=== PATIENT | female | born 1990 | race Caucasian/White ===

== ENCOUNTER 2018-10-16 08:25 | Inpatient (IN) ==
[~2018-10-16 08:25] MED LIST: miSOPROStol 50 MCG TAB PO ONE
[2018-10-16] MEDS ORDERED: LACTATED RINGER'S 1,000 ML IV PRN (10:10)
[2018-10-16] MEDS ORDERED: OXYTOCIN 30 UNITS/500 ML BAG IV PRN (10:10)
[2018-10-16] MEDS ORDERED: LACTATED RINGER'S 1,000 ML IV SCH (10:15)
[2018-10-16 10:33] LABS: Hematocrit (blood only) 38.1 % (37-47); Mean Corpuscular Volume 91.6 fL (80-100); Mean Platelet Volume 10.1 fL (7.4-10.4); Platelet Count 242 K/uL (130-400); Red Blood Count 4.16 M/uL (4.2-5.4); White Blood Count 8.35 K/uL (4.8-10.8)
[2018-10-16 10:37] LABS: Mean Corpuscular Hgb Conc 34.1 g/dL (32-36)
--- NOTE | 2018-10-16 11:32 | Obstetrical Progress Note ---
Date of Service October 16, 2018 Subjective 28 F P0010 at 41.1 weeks here for post dates induction of labor. GBS is negative. FHT Cat 1. Cervix is finger tip/50/-3/posterior/firm/intact. Will place Cervidil for ripening. Physical Exam 2 Vital Signs (Past 24 Hours): Last Vital Signs Temp 36.7 C 10/16/18 11:03 Pulse 76 10/16/18 11:03 Resp 20 10/16/18 11:03 BP 116/75 10/16/18 11:03
[2018-10-16] MEDS ORDERED: DINOPROSTONE 10 MG INSERT PV ONE (11:45)
[2018-10-17] MEDS ORDERED: miSOPROStol 50 MCG TAB PO ONE (01:00)
[2018-10-17] MEDS ORDERED: BUTORPHANOL TARTRATE 1 MG/ML VIAL IV PRN (01:19)
[2018-10-17] MEDS ORDERED: Nursing to Pharmacy Communication ONE (01:21)
[2018-10-17] MEDS ORDERED: miSOPROStol 50 MCG TAB PO PRN (01:26)
[2018-10-17] MEDS ORDERED: ePHEDrine sulfate 50 MG/ML AMP ONE (04:06)
[2018-10-17] MEDS ORDERED: BUPIVACAINE 0.25% 30 ML VIAL ONE (04:06)
[2018-10-17] MEDS ORDERED: fentaNYL citrate 100 MCG/2 ML VIAL ONE (04:07)
[2018-10-17] MEDS ORDERED: fentaNYL 2MCG/ML ROPIV 1.25MG/ML 100 ML BAG EPI ONE (04:07)
[2018-10-17] MEDS ORDERED: METHYLERGONOVINE MALEATE 0.2 MG/ML AMP ONE (04:53)
[2018-10-17] MEDS ORDERED: miSOPROStol 200 MCG TAB ONE (05:07)
[2018-10-17] MEDS ORDERED: ACETAMINOPHEN 325 MG TAB PO PRN (05:09)
[2018-10-17] MEDS ORDERED: BENZOCAINE 20% AER SPR 82.5 GM CAN EXT PRN (05:09)
[2018-10-17] MEDS ORDERED: METHYLERGONOVINE MALEATE 0.2 MG/ML AMP IM ONE (05:09)
[2018-10-17] MEDS ORDERED: SUPERCREAM 0.870% 15 GM JAR EXT PRN (05:09)
[2018-10-17] MEDS ORDERED: BISACODYL 10 MG SUPP PR PRN (05:09)
[2018-10-17] MEDS ORDERED: miSOPROStol 200 MCG TAB PR ONE (05:09)
[2018-10-17] MEDS ORDERED: OXYTOCIN 30 UNITS/500 ML BAG IV PRN (05:09)
[2018-10-17] MEDS ORDERED: HYDROCORTISONE ACETATE 25 MG SUPP PR PRN (05:09)
[2018-10-17] MEDS ORDERED: DIPHTHERIA/TETANUS/PERTUSSIS 0.5 ML SYR/VIAL IM ONE (05:09)
[2018-10-17] MEDS ORDERED: LACTATED RINGER'S 1,000 ML IV SCH (05:15)
--- NOTE | 2018-10-17 05:20 | Procedure Note ---
Vaginal Delivery Summary Date of Service October 17, 2018 Vaginal Delivery Summary Delivery Note live male over intact perineum REBECCA with delayed cord clamping. Apgars 8/9 weight pending. Cord obtained for full cord gas and cord blood obtained. Spontaneous delivery of intact placenta with 3VC. Small amount of uterine atony noted post- after delivery of placenta Fundus massaged, Cytotec 67625 mcg given rectally and 0.2 mg IM Methergine given. Small perineal tear noted and not bleeding with no repair needed. EBL 300ml. Final sponge and instrument count are correct. Mom and baby stable.
[2018-10-17 05:22] LABS: Base Excess Cord Arterial Bld -5.8 mEq/L (-9-1.8); CO2 Cord Arterial Blood 73 mmHg (39.1-73.5); HCO3 Cord Arterial Blood 25 mmol/L (19.7-28.5); pH Cord Arterial Blood 7.16 (7.1-7.38)
[2018-10-17 05:30] LABS: Base Excess Cord Venous Blood -5.2 mEq/L (-7.7-1.9); Cord Venous Blood HCO3 22 mmol/L (18.4-26.8); Cord Venous Blood PCO2 48 mmHg (30.4-57.2); Cord Venous Blood PO2 31 mmHg (14.1-43.3); Cord Venous Blood pH 7.28 (7.20-7.44)
[2018-10-17] MEDS: FERROUS SULFATE 325 MG TAB PO SCH (09:46)
[2018-10-17] MEDS: DOCUSATE SODIUM 100 MG CAP PO SCH ×2 (09:46→21:22)
[2018-10-17] MEDS: PRENATAL VITAMIN 1 TAB PO SCH (09:46)
--- NOTE | 2018-10-17 11:20 | Obstetrical Progress Note ---
Date of Service October 17, 2018 Assessment & Plan (1) normal course: PPD #1 pt doing well continue day #1 care Subjective Ambulation: ambulating normally Voiding: no voiding problems Passing Gas:: Yes Diet Tolerance:: regular diet Lochia:: Small Feeding Type:: breast feeding Review of Systems All systems reviewed & are unremarkable except as noted in HPI & below Physical Exam Vital Signs (Past 24 Hours) Last Vital Signs Temp 36.7 C 10/17/18 08:00 Pulse 91 H 10/17/18 08:00 Resp 16 10/17/18 08:00 BP 135/87 10/17/18 08:00 Pulse Ox 98 10/16/18 22:58 Constitutional WD/WN, vitals as above well developed and well nourished Eyes PERRL, conjunctivae normal, anicteric sclerae Neck trachea midline, no thyromegaly Respiratory normal respiratory effort, lungs clear to auscultation Auscultation: no crackles, no rales and no wheezes Cardiovascular RRR, no murmur, no edema Gastrointestinal (Abdomen) normal bowel sounds, soft, nontender, no hepatosplenomegaly Uterus is below umbilicus Musculoskeletal no cyanosis or clubbing, extremities motor strength 5/5 Skin no rashes, warm and dry Neurologic patellar DTR's 2+ bilat, sensation intact Psychiatric A+Ox3, euthymic affect Genitourinary normal external appearance
[2018-10-17] MEDS: IBUPROFEN 600 MG TAB PO PRN ×2 (14:09→19:46)
[2018-10-18 07:56] LABS: Hematocrit (blood only) 35.2 % (37-47); Hemoglobin 11.9 g/dL (12.0-16.0); Mean Corpuscular Hgb Conc 33.8 g/dL (32-36); Mean Corpuscular Volume 92.9 fL (80-100); Mean Platelet Volume 9.8 fL (7.4-10.4); Platelet Count 232 K/uL (130-400); RDW Coefficient of Variation 13.2 % (11.5-14.5); RDW Standard Deviation 44.8 fL (36.4-46.3); Red Blood Count 3.79 M/uL (4.2-5.4); White Blood Count 12.21 K/uL (4.8-10.8)
[2018-10-18] MEDS: PRENATAL VITAMIN 1 TAB PO SCH (08:21)
[2018-10-18] MEDS: IBUPROFEN 600 MG TAB PO PRN ×2 (08:21→20:00)
[2018-10-18] MEDS: DOCUSATE SODIUM 100 MG CAP PO SCH ×2 (08:21→20:00)
[2018-10-18] MEDS: FERROUS SULFATE 325 MG TAB PO SCH (08:21)
--- NOTE | 2018-10-18 09:50 | Obstetrical Progress Note ---
Date of Service October 18, 2018 Subjective Patient is seen and examined. She feels well, no complaints. Ambulating without dizziness Voiding without difficulty Tolerating regular diet with out N&V Bleeding is minimal No fever/ chills/ CP/ SOB/ N&V/ Leg pain Breast feeding without problems Vital Signs Temp Pulse Resp BP Pulse Ox 10/18/18 04:30 36.3 C L 86 16 119/77 10/18/18 00:00 36.6 C 87 18 119/80 10/17/18 19:55 36.5 C 101 H 18 124/73 10/17/18 16:00 36.6 C 88 18 121/84 97 10/17/18 13:00 36.5 C 88 16 126/84 10/18/18 Range/Units 07:39 WBC 12.21 H (4.8-10.8) K/uL RBC 3.79 L (4.2-5.4) M/uL Hgb 11.9 L (12.0-16.0) g/dL Hct 35.2 L (37-47) % MCV 92.9 (80-100) fL MCH 31.4 (25-34) pg MCHC 33.8 (32-36) g/dL RDW Std Deviation 44.8 (36.4-46.3) fL RDW Coeff of Dwaine 13.2 (11.5-14.5) % Plt Count 232 (130-400) K/uL MPV 9.8 (7.4-10.4) fL PE: General: Alert, orientedx3, NAD Abd: soft, NT, fundus firm, below Umbilicus Perineum intact, Lochia rubra minimal Ext; NT, no edema AP: 28 yo s/p , ppd# 1 VSS Afebrile doing well Continue routine care All questions were answered D/C home tomorrow Physical Exam 2 Vital Signs (Past 24 Hours): Last Vital Signs Temp 36.3 C L 10/18/18 04:30 Pulse 86 10/18/18 04:30 Resp 16 10/18/18 04:30 BP 119/77 10/18/18 04:30 Pulse Ox 97 10/17/18 16:00
[2018-10-18] MEDS ORDERED: BISACODYL 5 MG TABEC PO SCH (20:00)
[2018-10-19 07:02] LABS: Hematocrit (blood only) 39.1 % (37-47); Hemoglobin 13.2 g/dL (12.0-16.0)
[2018-10-19] MEDS: IBUPROFEN 600 MG TAB PO PRN (07:52)
[2018-10-19] MEDS: DOCUSATE SODIUM 100 MG CAP PO SCH (08:46)
[2018-10-19] MEDS: PRENATAL VITAMIN 1 TAB PO SCH (08:46)
[2018-10-19] MEDS: FERROUS SULFATE 325 MG TAB PO SCH (08:46)
--- NOTE | 2018-10-19 09:59 | Obstetrical Progress Note ---
Date of Service October 19, 2018 Physical Exam 2 Vital Signs (Past 24 Hours): Last Vital Signs Temp 36.9 C 10/19/18 04:00 Pulse 82 10/19/18 04:00 Resp 18 10/19/18 04:00 BP 127/76 10/19/18 04:00 Pulse Ox 97 10/18/18 17:05 Physical Exam: ABDOMEN SOFT AND NON TENDER VAGINAL BLEEDING SCANT TO MODERATE AMBULATING WELL NO CALF TENDERNESS
== END 2018-10-19 12:05 | disposition home or self-care (01) | DRG 807 ==
LOC: 4S1 08:25 → 4S2 10-17 09:08

== ENCOUNTER 2021-06-17 12:51 | Observation (INO) ==
[2021-06-17] MEDS ORDERED: OXYTOCIN 30 UNITS/500 ML BAG IV PRN (14:26)
[2021-06-17] MEDS ORDERED: LACTATED RINGER'S 1,000 ML IV PRN (14:26)
--- NOTE | 2021-06-17 15:27 | Ultrasound Report ---
US OB limited CLINICAL HISTORY: 31 years-old Female presenting with IUFD, FHR. Known demise. Study was perfor med for confirmation of absence of the cardiac activity. TECHNIQUE: Real-time grayscale ultrasound imaging of the abdomen was performed for a focused evaluati on at the site of clinical concern. COMPARISON: None. FINDINGS: No heart activity was detected on current study. body parts are demonstrated. IMPRESSION: 1. No cardiac activity was detected on current exam. ACT 112: Negative or not required by law. Electronically signed by: Caterina Dent DO 06/17/2021 3:26 PM
[2021-06-17 15:31] LABS: Amphetamines+Metham, Urine Neg (Neg); Barbiturates, Urine Neg (Neg); Benzodiazepine, Urine Neg (Neg); Cocaine, Urine Neg (Neg); MDMA (Ecstacy), Urine Neg (Neg); Methadone, Urine Neg (Neg); Opiate, Urine Neg (Neg); Phencyclidine, Urine Neg (Neg)
[2021-06-17 15:31] LABS: Alanine Aminotransferase 93 U/L (12-78); Albumin Level 2.6 gm/dl (3.4-5.0); Aspartate Aminotransferase 86 U/L (15-37); BUN Creatinine Ratio 9.2 (10-20); Blood Urea Nitrogen 4 mg/dl (7-18); Calcium 8.6 mg/dl (8.5-10.1); Carbon Dioxide 25 mmol/L (21-32); Chloride 107 mmol/L (98-107); Creatinine Clr Calc Pharmacy 190.2 ml/min; Est GFR (African American) > 150.0 ml/min; Est GFR (Non-African American) 131.6 ml/min; Glucose 80 mg/dl (70-99); Potassium 3.6 mmol/L (3.5-5.1); Sodium 139 mmol/L (136-145)
[2021-06-17 15:38] LABS: Hematocrit (blood only) 40.1 % (37-47); Hemoglobin 13.8 g/dL (12.0-16.0); Mean Corpuscular Hemoglobin 31.8 pg (25-34); Mean Corpuscular Hgb Conc 34.4 g/dL (32-36); Mean Corpuscular Volume 92.4 fL (80-100); Platelet Count 71 K/uL (130-400); Platelet Estimate Decreased (Normal); Red Blood Count 4.34 M/uL (4.2-5.4); White Blood Count 5.35 K/uL (4.8-10.8)
[2021-06-17 15:42] LABS: Albumin Globulin Ratio 0.7 (0.9-2); Alkaline Phosphatase 136 U/L (45-117); Bilirubin,Total 0.3 mg/dl (0.2-1); Globulin 3.7 gm/dl (2.5-4.0); Total Protein 6.3 gm/dl (6.4-8.2)
[2021-06-17] MEDS ORDERED: miSOPROStoL 50 MCG TAB PO SCH (16:00)
--- NOTE | 2021-06-17 16:08 | History & Physical Report ---
Date of Service June 17, 2021 Assessment & Plan (1) IUFD at 20 weeks or more of gestation: Plan: 31-year-old -0-1-1 at 30 weeks and 5 days of gestation with recent history of COVID-19 recovered with mild symptoms, Decreased movements for the last 2 days now confirmed IUFD with ultrasound both in office and here in labor and delivery. Vital signs stable afebrile, No signs nor symptoms of labor, PPROM, abruption, Low platelets with mild elevated liver enzymes, normal blood pressures and no protein in urine,Unlikely to be preeclampsia with severe features, most likely from recent COVID-19 infection. Plan to admit, monitor, repeat labs with coags cervical ripening with prostaglandins, Discussed work-up for IUFD including blood work for systemic illness, maternal diseases and autopsy, cyto-genetics, Patient agrees with blood work and cytogenetic testing but declines autopsy. All questions were answered. Admission and Anticipated Discharge Date Admission Date: June 17, 2021 History of Present Illness Chief Complaint: demise Primary Care Provider: Damian Lima MD Patient is a 31-year-old -0-1-1 at 30 weeks and 5 days of gestation who was sent from office with diagnosis of intrauterine demise, confirmed with ultrasound. She has been been noticing decreased movement since June 15 when she notified her OB to do a telemedicine visit and recommended to call back if no improvement after eat and drink. Patient felt 10 kicks in 2 hours on June 15 and then not much yesterday. She felt 1-Click last night and then called this morning and recommended to come into the office for NST. Nursing team could not find heart rate and refer her for ultrasound which confirmed no heart rate. Since she came here she requested another ultrasound for confirmation and it was down and confirmed no heart tones. She has no complaints other than being sad. She was recently diagnosed with COVID-19 and was home with minimal symptoms. She started to have symptoms of runny nose and loss of smell on June 06. Then went to walk-in clinic in [facility] and had swab done on June 09. They called her with positive results on June 11. She states she passed her symptoms easily that she almost could not believe that her test was positive. She had occasional headaches and cough but she has been doing well since yesterday. Her has been uncomplicated. She had full-term spontaneous vaginal delivery in 2019 with no complications. She denies any medical problems, surgeries, medications, smoking, alcohol or drug use. She denies any history of patient transmit diseases including chlamydia, gonorrhea, herpes. She has been working from home since COVID-19 disease has started. She denies contractions, leakage of fluid, vaginal bleeding. She denies headache, change in her vision, epigastric or right upper quadrant pain, nausea or vomiting. Allergies Allergy/AdvReac Type Severity Reaction Status Date / Time Penicillins Allergy Mild RASH Verified 10/17/18 06:42 amoxicillin Allergy Rash Verified 10/17/18 06:43 Home Medications Medication Instructions Recorded Confirmed Type vitamins-iron fumarate 27 1 tab PO DAILY 10/16/18 06/17/21 History mg iron-folic acid 0.8 mg tablet ( Vitamin) Patient History Medical History (Updated 06/17/21 @ 16:05 by Sloane Dan MD) COVID-19 onset of symptoms June 06 positive test June 10 No known health problems Surgical History [place] teeth removed Social History Smoking Status: Never smoker Hx Alcohol Use: No Hx Substance Use: No Preferred Language: Danish Communication Ability: Effective Travel Pta Required: No Beliefs That Will Affect Care: None marital status: Current Living Situation: Spouse Feels Safe at Home: Yes Safety Concerns: Feels Safe At This Time Assistive Devices: None Review of Systems as per Subjective / HPI Physical Exam Constitutional: well developed and well nourished She is comfortably sitting in bed and smiling, not in acute distress. Gastrointestinal (Abdomen): normal bowel sounds, soft, nontender, no hepatosplenomegaly (Gravid, no epigastric nor right upper quadrant tenderness.) Inspection/Auscultation: abdomen normal to inspection and + abdomen distended Genitourinary: normal external appearance OB Exam Abdomen: + vertex Manual OB Exam: + cervical dilation 1 cm, + cervical effacement 20% and + station high (Posterior) Results & Data ([facility]) Vital Signs (Past 12 Hours) Vital Signs Temp Pulse Resp BP Pulse Ox 06/17/21 15:55 81 98 06/17/21 15:50 82 98 06/17/21 15:45 79 98 06/17/21 15:40 78 99 06/17/21 15:35 83 97 06/17/21 15:30 89 96 06/17/21 15:25 78 98 06/17/21 15:20 84 99 06/17/21 15:12 80 94 06/17/21 15:11 90 95 06/17/21 15:07 83 94 06/17/21 15:06 84 94 06/17/21 15:01 82 96 06/17/21 15:00 82 94 06/17/21 14:56 78 94 06/17/21 14:55 81 94 06/17/21 14:51 81 94 06/17/21 14:50 96 H 94 06/17/21 14:46 79 94 06/17/21 14:44 83 94 06/17/21 14:41 77 95 06/17/21 14:37 82 94 06/17/21 14:36 82 94 06/17/21 14:28 36.4 C L 82 20 117/75 95 06/17/21 13:52 36.4 C L 82 20 117/75 95 Laboratory Results Lab Results 06/17/21 06/17/21 06/17/21 Range/Units 14:44 14:44 14:58 WBC 5.35 (4.8-10.8) K/uL RBC 4.34 (4.2-5.4) M/uL Hgb 13.8 (12.0-16.0) g/dL Hct 40.1 (37-47) % MCV 92.4 (80-100) fL MCH 31.8 (25-34) pg MCHC 34.4 (32-36) g/dL RDW Std Deviation 44.0 (36.4-46.3) fL RDW Coeff of Dwaine 13.0 (11.5-14.5) % Plt Count 71 L (130-400) K/uL MPV 11.0 H (7.4-10.4) fL Platelet Estimate Decreased L (Normal) Sodium 139 (136-145) mmol/L Potassium 3.6 (3.5-5.1) mmol/L Chloride 107 (98-107) mmol/L Carbon Dioxide 25 (21-32) mmol/L Anion Gap 7.0 (3-11) BUN 4 L (7-18) mg/dl Creatinine 0.47 L (0.6-1.2) mg/dl Est Cr Clr Drug Dosing 190.2 ml/min Est GFR ( Amer) > 150.0 ml/min Est GFR (Non-Af Amer) 131.6 ml/min BUN/Creatinine Ratio 9.2 L (10-20) Glucose 80 (70-99) mg/dl Calcium 8.6 (8.5-10.1) mg/dl Total Bilirubin 0.3 (0.2-1) mg/dl AST 86 H (15-37) U/L ALT 93 H (12-78) U/L Alkaline Phosphatase 136 H (45-117) U/L Total Protein 6.3 L (6.4-8.2) gm/dl Albumin 2.6 L (3.4-5.0) gm/dl Globulin 3.7 (2.5-4.0) gm/dl Albumin/Globulin Ratio 0.7 L (0.9-2) TSH 1.570 (0.300-4.500) uIu/ml Urine Opiates Screen (Neg) Ur Methadone, Qual (Neg) Urine Barbiturates (Neg) Ur Phencyclidine (PCP) (Neg) U Amphetamin/Meth Scrn (Neg) MDMA (Ecstasy) Screen (Neg) U Benzodiazepines Scrn (Neg) Ur Cocaine Metabolite (Neg) U Marijuana (THC) Screen (Neg) Blood Type A Positive Antibody Screen NEGATIVE Mother's Rh Status RH Pos Maternal Bleed 0 ML KB Cells Counted 0 /Adult RBC Ratio 0.00 06/17/21 Range/Units Unknown WBC (4.8-10.8) K/uL RBC (4.2-5.4) M/uL Hgb (12.0-16.0) g/dL Hct (37-47) % MCV (80-100) fL MCH (25-34) pg MCHC (32-36) g/dL RDW Std Deviation (36.4-46.3) fL RDW Coeff of Dwaine (11.5-14.5) % Plt Count (130-400) K/uL MPV (7.4-10.4) fL Platelet Estimate (Normal) Sodium (136-145) mmol/L Potassium (3.5-5.1) mmol/L Chloride (98-107) mmol/L Carbon Dioxide (21-32) mmol/L Anion Gap (3-11) BUN (7-18) mg/dl Creatinine (0.6-1.2) mg/dl Est Cr Clr Drug Dosing ml/min Est GFR ( Amer) ml/min Est GFR (Non-Af Amer) ml/min BUN/Creatinine Ratio (10-20) Glucose (70-99) mg/dl Calcium (8.5-10.1) mg/dl Total Bilirubin (0.2-1) mg/dl AST (15-37) U/L ALT (12-78) U/L Alkaline Phosphatase (45-117) U/L Total Protein (6.4-8.2) gm/dl Albumin (3.4-5.0) gm/dl Globulin (2.5-4.0) gm/dl Albumin/Globulin Ratio (0.9-2) TSH (0.300-4.500) uIu/ml Urine Opiates Screen Neg (Neg) Ur Methadone, Qual Neg (Neg) Urine Barbiturates Neg (Neg) Ur Phencyclidine (PCP) Neg (Neg) U Amphetamin/Meth Scrn Neg (Neg) MDMA (Ecstasy) Screen Neg (Neg) U Benzodiazepines Scrn Neg (Neg) Ur Cocaine Metabolite Neg (Neg) U Marijuana (THC) Screen Neg (Neg) Blood Type Antibody Screen Mother's Rh Status Maternal Bleed ML KB Cells Counted /Adult RBC Ratio
[2021-06-17] MEDS ORDERED: BUTORPHANOL TARTRATE 1 MG/ML VIAL IV PRN (16:13)
[2021-06-17 16:30] LABS: Hematocrit (blood only) 40.4 % (37-47); Hemoglobin 13.8 g/dL (12.0-16.0); Mean Corpuscular Hemoglobin 31.5 pg (25-34); Mean Corpuscular Hgb Conc 34.2 g/dL (32-36); Mean Corpuscular Volume 92.2 fL (80-100); RDW Coefficient of Variation 12.9 % (11.5-14.5); RDW Standard Deviation 43.4 fL (36.4-46.3); Red Blood Count 4.38 M/uL (4.2-5.4); White Blood Count 5.33 K/uL (4.8-10.8)
[2021-06-17 16:37] LABS: Mean Platelet Volume 11.1 fL (7.4-10.4); Platelet Count 70 K/uL (130-400)
[2021-06-17 17:25] LABS: INR 1.2 (0.9-1.1); Partial Thromboplastin Ratio 1.1; Partial Thromboplastin Time 29.5 Seconds (21.0-31.0); Prothrombin Time 11.8 Seconds (9.0-12.0)
[2021-06-17] MEDS ORDERED: MAG SULFATE 4GM BOLUS FROM BAG IV ONE (17:28)
[2021-06-17] MEDS ORDERED: MAGNESIUM SULFATE / WTR 40 GM/1,000 ML BAG IV SCH (17:30)
[2021-06-17 17:34] LABS: ALC (manual) 2.29 K/uL (1.2-3.4); ANC (manual) 2.82 K/uL (1.4-6.5); Basophils # (manual) 0.11 K/uL (0-0.2); Lymphocytes # (manual) 1.49 K/uL (1.2-3.4); Monocytes # (manual) 0.11 K/uL (0.11-0.59); Neutrophils # (manual) 2.82 K/uL (1.4-6.5); Polychromasia 1+
--- NOTE | 2021-06-17 17:34 | Obstetrical Progress Note ---
Date of Service June 17, 2021 Assessment & Plan Admission and Anticipated Discharge Date Admission Date: June 17, 2021 Subjective Patient is reevaluated She feels well, has no symptoms of COVID nor HELLP syndrome Has not felt ctxs yet Pulse OX: 99% RA Lungs CTAB No LE edema nor pain. I [place] JAN[place] [facility] [place] discussed her labs, low platelets and elevated Liver enzymes and the recommended IV Magnesium seizure prophylaxis just in case she would develop HELLP symdrome. Plan to SCD's, continue with IOL and IV magnesium sulfate Patient agrees with plan. All questions were answered. Results & Data ([facility]) Vital Signs (Past 12 Hours) Vital Signs Temp Pulse Resp BP Pulse Ox 06/17/21 17:25 79 98 06/17/21 17:20 84 99 06/17/21 17:15 79 98 06/17/21 17:10 84 98 06/17/21 17:05 85 98 06/17/21 17:00 80 98 06/17/21 16:55 79 98 06/17/21 16:50 84 98 06/17/21 16:45 86 98 06/17/21 16:40 85 98 06/17/21 16:35 91 H 99 06/17/21 16:30 87 99 06/17/21 16:25 85 99 06/17/21 16:20 93 H 99 06/17/21 16:15 80 99 06/17/21 16:10 79 98 06/17/21 16:05 75 99 06/17/21 16:00 76 99 06/17/21 15:58 77 120/83 06/17/21 15:55 81 98 06/17/21 15:50 82 98 06/17/21 15:45 79 98 06/17/21 15:40 78 99 06/17/21 15:35 83 97 06/17/21 15:30 89 96 06/17/21 15:25 78 98 06/17/21 15:20 84 99 06/17/21 15:12 80 94 06/17/21 15:11 90 95 06/17/21 15:07 83 94 06/17/21 15:06 84 94 06/17/21 15:01 82 96 06/17/21 15:00 82 94 06/17/21 14:56 78 94 06/17/21 14:55 81 94 06/17/21 14:51 81 94 06/17/21 14:50 96 H 94 06/17/21 14:46 79 94 06/17/21 14:44 83 94 06/17/21 14:41 77 95 06/17/21 14:37 82 94 06/17/21 14:36 82 94 06/17/21 14:28 36.4 C L 82 20 117/75 95 06/17/21 13:52 36.4 C L 82 20 117/75 95
--- NOTE | 2021-06-17 17:41 | Hospitalist Consultation ---
Date of Consultation June 17, 2021 Assessment & Plan (1) COVID-19: - Hx of such, June 06 had sx, Jun 10 tested positive (2) IUFD at 20 weeks or more of gestation: (3) Thrombocytopenia: (4) Elevated transaminase level: History of Present Illness Reason for Consultation: Abnormal labs Requesting Physician: Dr. Dan Attending Physician: Sloane Dan MD History of Present Illness This is a 31 yo F without other significant other than recent COVID-19 infection with minimal symptoms which began on June 06, she tested positive on Jun 10. She is 30 weeks along in the course of her and noticed decreased movement. Pt was seen in the office today by SOLE LEVELING MACHINE OPERATOR and ultrasound confirmed demise. Pt presents to the hospital for induction of labor. Medicine has been asked to consult for abnormal labs. LFT function is slightly elevated, as well as thrombocytopenia with plt of 70. Allergies Allergy/AdvReac Type Severity Reaction Status Date / Time Penicillins Allergy Mild RASH Verified 10/17/18 06:42 amoxicillin Allergy Rash Verified 10/17/18 06:43 Home Medications Medication Instructions Recorded Confirmed Type vitamins-iron fumarate 27 1 tab PO DAILY 10/16/18 06/17/21 History mg iron-folic acid 0.8 mg tablet ( Vitamin) Patient History Medical History (Updated 06/17/21 @ 17:50 by Gabriela Levy PA-C) COVID-19 onset of symptoms June 06 positive test June 10 No known health problems Surgical History [place] teeth removed Social History Smoking Status: Never smoker Hx Alcohol Use: No Hx Substance Use: No Preferred Language: Georgian Communication Ability: Effective Graduate Assistant Required: No Beliefs That Will Affect Care: None marital status: Current Living Situation: Spouse Feels Safe at Home: Yes Safety Concerns: Feels Safe At This Time Assistive Devices: None Results & Data Results & Data ([facility]) Vital Signs (Past 12 Hours) Vital Signs Temp Pulse Resp BP Pulse Ox 06/17/21 17:29 76 116/79 06/17/21 17:25 79 98 06/17/21 17:20 84 99 06/17/21 17:15 79 98 06/17/21 17:10 84 98 06/17/21 17:05 85 98 06/17/21 17:00 80 98 06/17/21 16:55 79 98 06/17/21 16:50 84 98 06/17/21 16:45 86 98 06/17/21 16:40 85 98 06/17/21 16:35 91 H 99 06/17/21 16:30 87 99 06/17/21 16:25 85 99 06/17/21 16:20 93 H 99 06/17/21 16:15 80 99 06/17/21 16:10 79 98 06/17/21 16:05 75 99 06/17/21 16:00 76 99 06/17/21 15:58 77 120/83 06/17/21 15:55 81 98 06/17/21 15:50 82 98 06/17/21 15:45 79 98 06/17/21 15:40 78 99 06/17/21 15:35 83 97 06/17/21 15:30 89 96 06/17/21 15:25 78 98 06/17/21 15:20 84 99 06/17/21 15:12 80 94 06/17/21 15:11 90 95 06/17/21 15:07 83 94 06/17/21 15:06 84 94 06/17/21 15:01 82 96 06/17/21 15:00 82 94 06/17/21 14:56 78 94 06/17/21 14:55 81 94 06/17/21 14:51 81 94 06/17/21 14:50 96 H 94 06/17/21 14:46 79 94 06/17/21 14:44 83 94 06/17/21 14:41 77 95 06/17/21 14:37 82 94 06/17/21 14:36 82 94 06/17/21 14:28 36.4 C L 82 20 117/75 95 06/17/21 13:52 36.4 C L 82 20 117/75 95 Diagnostic Findings Obstetrics Ultrasound 06/17/21 14:26 US OB limited CLINICAL HISTORY: 31 years-old Female presenting with IUFD, FHR. Known demise. Study was performed for confirmation of absence of the cardiac activity. TECHNIQUE: Real-time grayscale ultrasound imaging of the abdomen was performed for a focused evaluation at the site of clinical concern. COMPARISON: None. FINDINGS: No heart activity was detected on current study. body parts are demonstrated. IMPRESSION: 1. No cardiac activity was detected on current exam. ACT 112: Negative or not required by law. Electronically signed by: Caterina Dent DO 06/17/2021 3:26 PM
[2021-06-17 17:58] LABS: Appearance Urine Turbid (Clear); Bacteria Urine Automated Negative (Negative); Bilirubin Urine Negative (Negative); Blood Urine Negative (Negative); Color Urine Yellow; Epithelial Cell Urine Auto >30 /lpf (0-5); Glucose Urine UA Negative (Negative); Ketones Urine Negative (Negative); Leukocyte Esterase Urine Trace (Negative); Nitrite Urine Negative (Negative); Protein Urine Negative (Negative); RBC Urine Automated 0-4 /hpf (0-4); Specific Gravity Urine 1.009 (1.000-1.030); Urobilinogen Urine Negative (Negative)
[2021-06-17 18:08] LABS: Creatinine Urine Random 65.5 mg/dl; Protein Creatinine Ratio Urine 0.3 (0-0.2); Total Protein Urine Random 16.5 mg/dl (0-11.9)
[2021-06-17 18:31] LABS: Fibrinogen 96 mg/dl (184-400)
--- NOTE | 2021-06-17 19:59 | Obstetrical Progress Note ---
Date of Service June 17, 2021 Assessment & Plan Admission and Anticipated Discharge Date Admission Date: June 17, 2021 Subjective Patient is reevaluated with the recent lab results. She still feels well no complaints, no contractions, leakage of fluid or vaginal bleeding. Vital signs stable afebrile, Fibrinogen came back low at 96 with a mild elevated INR at 1.2. CBC was repeated with platelet count of 70,000, I called the lab and asked them for manual count and they said they have already done and it was 50,000. I spoke with ICU doctor applications specialist he recommended cryo precipitate transfusion now, 2 units. We discussed with the patient about treatment here versus in a tertiary care center in [facility] in [place]. Patient desires to be transferred. I called MFM applications specialist and signals officer on-call for the [facility] and arranging transfer. They are aware and accepted transfer. Awaiting for bed placement and Helicoper to arrive. Patient agrees and signed the consent for transfer. Received 1st unit of Cryoprecipitate already and awaiting for 2nd unit. All questions were answered. Results & Data ([facility]) Vital Signs (Past 12 Hours) Vital Signs Temp Pulse Resp BP Pulse Ox 06/17/21 19:11 89 98 06/17/21 19:06 88 98 06/17/21 19:01 98 H 99 06/17/21 19:00 82 123/79 06/17/21 18:56 88 99 06/17/21 18:51 89 98 06/17/21 18:46 89 99 06/17/21 18:43 75 114/80 06/17/21 18:41 84 98 06/17/21 18:36 85 97 06/17/21 18:31 96 H 98 06/17/21 18:26 94 H 112/76 97 06/17/21 18:21 85 107/70 98 06/17/21 18:16 96 H 110/70 98 06/17/21 18:11 92 H 114/81 98 06/17/21 18:06 96 H 116/81 99 06/17/21 18:01 91 H 114/87 99 06/17/21 17:56 83 113/79 99 06/17/21 17:51 83 98 06/17/21 17:46 77 99 06/17/21 17:41 88 100 06/17/21 17:36 79 100 06/17/21 17:29 76 116/79 06/17/21 17:25 79 98 06/17/21 17:20 84 99 06/17/21 17:15 79 98 06/17/21 17:10 84 98 06/17/21 17:05 85 98 06/17/21 17:00 80 98 06/17/21 16:55 79 98 06/17/21 16:50 84 98 06/17/21 16:45 86 98 06/17/21 16:40 85 98 06/17/21 16:35 91 H 99 06/17/21 16:30 87 99 06/17/21 16:25 85 99 06/17/21 16:20 93 H 99 06/17/21 16:15 80 99 06/17/21 16:10 79 98 06/17/21 16:05 75 99 06/17/21 16:00 76 99 06/17/21 15:58 77 120/83 06/17/21 15:55 81 98 06/17/21 15:50 82 98 06/17/21 15:45 79 98 06/17/21 15:40 78 99 06/17/21 15:35 83 97 06/17/21 15:30 89 96 06/17/21 15:25 78 98 06/17/21 15:20 84 99 06/17/21 15:12 80 94 06/17/21 15:11 90 95 06/17/21 15:07 83 94 06/17/21 15:06 84 94 06/17/21 15:01 82 96 06/17/21 15:00 82 94 06/17/21 14:56 78 94 06/17/21 14:55 81 94 06/17/21 14:51 81 94 06/17/21 14:50 96 H 94 06/17/21 14:46 79 94 06/17/21 14:44 83 94 06/17/21 14:41 77 95 06/17/21 14:37 82 94 06/17/21 14:36 82 94 06/17/21 14:28 36.4 C L 82 20 117/75 95 06/17/21 13:52 36.4 C L 82 20 117/75 95
[2021-06-17 20:44] LABS: Lyme Ab IgG w/WB Rflx Negative (Negative); Lyme Ab IgM w/WB Rflx Negative (Negative)
[2021-06-17 21:10] LABS: Alanine Aminotransferase 85 U/L (12-78); Albumin Globulin Ratio 0.7 (0.9-2); Albumin Level 2.5 gm/dl (3.4-5.0); Alkaline Phosphatase 128 U/L (45-117); Aspartate Aminotransferase 80 U/L (15-37); BUN Creatinine Ratio 9.5 (10-20); Bilirubin,Total 0.3 mg/dl (0.2-1); Blood Urea Nitrogen 4 mg/dl (7-18); Calcium 7.8 mg/dl (8.5-10.1); Carbon Dioxide 26 mmol/L (21-32); Chloride 106 mmol/L (98-107); Creatinine Clr Calc Pharmacy 194.3 ml/min; Est GFR (African American) > 150.0 ml/min; Est GFR (Non-African American) 132.6 ml/min; Globulin 3.7 gm/dl (2.5-4.0); Glucose 87 mg/dl (70-99); Potassium 3.4 mmol/L (3.5-5.1); Sodium 138 mmol/L (136-145); Total Protein 6.2 gm/dl (6.4-8.2)
[2021-06-18 07:41] LABS: Estimated Average Glucose 105 mg/dl; Hemoglobin A1C 5.3 % (4.5-5.6)
--- NOTE | 2021-06-23 14:42 | Discharge Summary (DS) ---
DATE OF ADMISSION: 06/17/2021 DATE OF DISCHARGE: 06/17/2021 DETAILS OF ADMISSION: The patient is a 31-year-old G3, P1-0-1-1, at 30 weeks and 5 days of gestation with a recent history of COVID-19 diagnosed on 06/09/2021. She was recovering at home with no major symptoms. She called the office on 06/17 for decreased movements and found to have intrauterine demise confirmed by ultrasound. She was sent to labor and delivery for induction of labor. When she presented to labor and delivery, we performed another ultrasound to confirm and there was no heart activity on repeat ultrasound. Her cervix was unfavorable at 1 cm and thick. Her blood pressures were normal. There was no protein in urine. Upon discussion, we decided to have induction of labor with prostaglandin. Then, the lab results came back. Her platelets are low at 71,000. I confirmed with the lab that it is actually 50,000 by manual counting. Her chemistry showed elevated liver enzymes as AST 86, ALT is 93. Coagulation study showed the INR is slightly elevated at 1.2 and fibrinogen is significantly low at 96 mg/dL. Upon discussion with ICU attending, we decided to give her 2 units of cryoprecipitate for low fibrinogen. I spoke with the MFM in [facility] in [place]. They recommended magnesium for seizure prophylaxis because of atypical HELLP syndrome versus DIC from COVID-19 and then decision was made to transfer her to tertiary care center where the platelets are available. We made phone calls to MFM as well as OB doctor traffic control flagger at [facility] and the decision was made to transfer her in helicopter. She was transferred and arrived there safely. The rest of her records are in [facility] system. Job ID: [id number] [facility]
[2021-06-23 20:51] LABS: B2 Glycoprotein IgG <2.0 U/mL (<20.0); B2 Glycoprotein IgM 2.5 U/mL (<20.0); CMV IgG Antibody <0.60 U/mL; CMV IgM Antibody <30.00 AU/mL; Parvovirus IgG 6.7 (<0.9); Parvovirus IgM 0.2 (<0.9); Toxoplasma gondii IgG Ab, EIA <7.20 IU/mL; Toxoplasma gondii IgM Ab, EIA <8.00 AU/mL
[2021-06-24 09:05] LABS: Lupus Hex Phase (Rflxdonotord) Negative (Negative)
== END 2021-06-17 21:30 | disposition short-term general hospital (02) | DRG 831 ==
LOC: 4S1 12:51 → INTOOBSV 12:51